=== PATIENT | male | born 1970 | race Caucasian/White ===

== ENCOUNTER → 2021-01-19 | Outpatient (CLI) | payer OTHER | LOC: KOH-I 10:11 | DX: M23.91 Unspecified internal derangement of right knee (principal); M25.361 Other instability, right knee; S83.241A Other tear of medial meniscus, current injury, right knee, initial encounter | CPT/HCPCS: 73721 ==

== ENCOUNTER → 2021-11-03 | Outpatient (CLI) | payer OTHER ==
[2021-11-03 11:21] LABS: HEMOGLOBIN 16.2 gm/dl (14.0-17.5); RED BLOOD COUNT 5.16 M/UL (4.20-5.50); WHITE BLOOD COUNT 5.5 K/UL (4.5-11.0)
[2021-11-03 11:41] LABS: BUN/CREATININE RATIO 10 (0-10)
[2021-11-04 08:24] LABS: VITAMIN D, 25-HYDROXY 34.1 ng/mL (30.0-100.0)
[2021-11-04 09:14] LABS: TESTOSTERONE, SERUM 559 ng/dL (264-916)
== END ==
LOC: LAB 10:23
PROVIDERS: Nurse Practitioner Family
DX: R53.83 Other fatigue (principal); G89.29 Other chronic pain; E29.1 Testicular hypofunction; R42 Dizziness and giddiness; E55.9 Vitamin D deficiency, unspecified; Z79.899 Other long term (current) drug therapy; Z79.1 Long term (current) use of non-steroidal anti-inflammatories (NSAID)
CPT/HCPCS: 36415; 80053; 80061; 82550; 82553; 82728; 83540; 83550; 84403; 84484; 85025; 85379; 85610; 85652; 86140

== ENCOUNTER → 2021-12-07 | Outpatient (CLI) | payer OTHER | LOC: ECHO 10:00 | DX: R00.1 Bradycardia, unspecified (principal); I10 Essential (primary) hypertension; I08.1 Rheumatic disorders of both mitral and tricuspid valves | CPT/HCPCS: ECHO; 71046; 93306; 93880 ==

== ENCOUNTER → 2021-12-27 | Outpatient (CLI) | payer OTHER | LOC: HEART 5 08:07 | DX: R06.02 Shortness of breath (principal) | CPT/HCPCS: 78452; A9502; J2785 ==